=== PATIENT | male | born 1975 | race Caucasian/White ===

== ENCOUNTER 2017-03-30 15:28 | Emergency (ER) | payer OTHER ==
[2017-03-30] MEDS ORDERED: Sodium Chloride 0.9% 1,000 ML IV STA (16:23)
[2017-03-30] MEDS ORDERED: Ondansetron 4 MG/2 ML SDV IVPUSH ONE (16:23)
[2017-03-30] MEDS ORDERED: Sodium Chloride 0.9% 10 ML Syringe FLUSH PRN (16:23)
[2017-03-30] MEDS ORDERED: HYDROmorphone 1 MG/ML Syringe IVPUSH ONE (16:24)
[2017-03-30] MEDS ORDERED: Diatrizoate Meglumine/Diatrizoate Sodium 37% 120 ML Bottle PO ONE ×2 (16:52→17:40)
[2017-03-30] MEDS ORDERED: Iopamidol 612 MG/ML 150 ML Bottle IVPUSH ONE ×2 (16:52→17:40)
[2017-03-30] MEDS ORDERED: Sodium Chloride 0.9% 10 ML Syringe FLUSH ONE (16:52)
[2017-03-30] MEDS ORDERED: Sodium Chloride 0.9% 1,000 ML IV ONE (18:07)
[2017-03-30] MEDS ORDERED: Metoclopramide 10 MG/2 ML SDV IVPUSH ONE (18:09)
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
--- NOTE | 2017-03-30 18:20 | CT ---
CT abdomen and pelvis Technique: Multiple axial sections were obtained from above the dome of the diaphragm inferiorly through the pubic symphysis. Intravenous and oral contrast was utilized. Delayed images were also obtained through the pelvis. Comparison: No previous study. Findings: Dilated jejunal loops are noted. Etiology not identified and findings most likely due to adhesions. Small fat-containing abdominal wall hernia is seen. Visualized lung bases shows nothing acute. Liver shows no focal abnormality. Previous gastric surgery is noted. Previous splenectomy is noted with several accessory splenic lobules being seen in the area of the splenic bed. Adrenal glands show no nodule. Kidneys show contrast enhancement without hydronephrosis or mass. Delayed images shows contrast within distal ureters and bladder. Aorta shows no aneurysmal dilatation. Gallbladder shows no calcified gallstones. No retroperitoneal adenopathy or mesenteric abnormalities are seen. There is moderate amount of free fluid seen within the pelvis most likely on a reactive basis from bowel obstruction. Bone window settings were reviewed which shows scattered degenerative change within the spine most prominent within the thoracic spine. Impression: 1. Dilated jejunal loops compatible with mid small bowel obstruction. Etiology not seen and findings most likely due to adhesions. 2. Small fat-containing anterior abdominal wall hernia. 3. Previous splenectomy as well as previous gastric surgery. 4. Free fluid within the pelvis most likely reactive from the bowel obstruction. Diagnostic code #3
[2017-03-30] MEDS ORDERED: HYDROmorphone 0.5 MG/0.5 ML Syringe IVPUSH ONE (18:48)
[2017-03-30] MEDS ORDERED: Lactated Ringers 1,000 ML IV SCH (19:45)
[2017-03-30 20:12] VITALS: BP 136/87
== END 2017-03-30 19:59 ==
LOC: JD.ED 15:28
DX: K56.60 Unspecified intestinal obstruction (principal); F17.210 Nicotine dependence, cigarettes, uncomplicated; Z98.84 Bariatric surgery status; Z98.890 Other specified postprocedural states; Z90.81 Acquired absence of spleen
CPT/HCPCS: 36415; 74177; 80053; 83690; 85025; 96361; 96374; 96375; 96376; 99285; G0480; J1170; J2405; J2765; J7040; J7050; J7120; Q9963; Q9967

== ENCOUNTER 2023-09-09 16:20 | Emergency (ER) | payer OTHER ==
[2023-09-09 18:56] VITALS: BP 159/92; PULSE 83
== END 2023-09-09 18:10 | disposition home or self-care (01) ==
LOC: JD.ED 16:20
DX: S61.211A Laceration without foreign body of left index finger without damage to nail, initial encounter (principal); I10 Essential (primary) hypertension; F17.210 Nicotine dependence, cigarettes, uncomplicated; Z88.8 Allergy status to other drugs, medicaments and biological substances; W26.0XXA Contact with knife, initial encounter
CPT/HCPCS: 12002; 99282